=== PATIENT | male | born 1955 | race Caucasian/White ===

== ENCOUNTER → 2016-10-01 | Day surgery (SDC) | payer OTHER ==
[~2016-10-01] MED LIST: ASPIRIN325 MG PO; BACLOFEN 10MG T10 MG PO; COZAAR50 MG PO; LEXAPRO 10MG TA10 MG PO; MELATIN3 MG PO; MOBIC7.5 MG PO; NEURONTIN300 MG PO; PERCOCET 5/3251 TAB PO; VIBRAMYCIN100 MG PO; VICODIN 10/3251 EACH PO
== END | disposition home or self-care (01) ==
LOC: FAS 13:02
DX: H26.9 Unspecified cataract (principal); I10 Essential (primary) hypertension; F32.9 Major depressive disorder, single episode, unspecified; M19.90 Unspecified osteoarthritis, unspecified site; Z88.8 Allergy status to other drugs, medicaments and biological substances; K74.60 Unspecified cirrhosis of liver; Z79.899 Other long term (current) drug therapy; Z90.49 Acquired absence of other specified parts of digestive tract; Z98.890 Other specified postprocedural states

== ENCOUNTER 2021-02-19 14:18 | Emergency (ER) | payer MEDICARE ==
[2021-02-19 15:05] LABS: EOSINOPHIL 1.2 % (0-7); HGB 13.3 g/dl (13.2-18.0); LYMPHOCYTE 17.9 % (15-48); MCH 30.6 pg (25.0-31.0); MCHC 34.1 g/dL (32.0-36.0); MCV 89.7 fL (78.0-100.0); MONOCYTE 11.3 % (0-12); MPV 9.7 fL (6.0-9.5); NEUTROPHIL 68.4 % (41-80); NRBC 0; PLT 127 K/uL (150-400); RBC 4.35 M/uL (4.70-6.00); RDW 14.6 % (11.5-14.0); WBC 4.1 K/uL (4.0-10.5)
[2021-02-19 15:32] LABS: ALBUMIN 2.8 g/dL (3.4-5.0); BILIRUBIN - TOTAL 2.1 mg/dL (0.2-1.0); BUN/CREAT RATIO (CALC) 13.2 RATIO; CREATININE 1.06 mg/dL (0.67-1.17); GLOBULIN (CALCULATION) 3.4 g/dL; POTASSIUM 3.4 mmol/L (3.5-5.1); TOTAL PROTEIN 6.2 g/dL (6.4-8.2)
[2021-02-19 15:38] LABS: INR 1.2 (0.9-1.2); PROTHROMBIN TIME 14.6 SECONDS (11.8-13.4)
[2021-02-19 16:34] LABS: BILIRUBIN NEGATIVE (NEGATIVE); BLOOD NEGATIVE Ery/uL (NEGATIVE); CLARITY CLEAR (CLEAR); COLOR YELLOW (YELLOW); GLUCOSE (U) NORMAL (NORMAL); LEUKOCYTES NEGATIVE Leu/uL (NEGATIVE); NITRITE NEGATIVE (NEGATIVE); PROTEIN NEGATIVE (NEGATIVE); SPECIFIC GRAVITY 1.015 (1.001-1.030)
[2021-02-19] MEDS ORDERED: ALDACTONE25 MG PO (18:29)
[2021-02-19] MEDS ORDERED: LASIX40 MG PO (18:29)
[2021-02-19] MEDS ORDERED: BACTROBAN NASAL1 GM TOP (18:29)
[2021-02-19] MEDS ORDERED: K-DUR20 MEQ PO (18:29)
[2021-02-19] MEDS ORDERED: KEFLEX750 MG PO (18:29)
== END 2021-02-19 18:55 | disposition home or self-care (01) ==
LOC: FER 14:18
PROVIDERS: Emergency Medicine
DX: K74.60 Unspecified cirrhosis of liver (principal); L03.116 Cellulitis of left lower limb; L03.115 Cellulitis of right lower limb
CPT/HCPCS: 36415; 71045; 80053; 81003; 82140; 82150; 83690; 83880; 84145; 85025; 85610; 96374; 96375; J1940; P9046; Q9967

== ENCOUNTER 2021-02-24 16:51 | Emergency (ER) | payer MEDICARE, OTHER ==
[~2021-02-24 16:51] MED LIST changes: +ALDACTONE25 MG PO; +BACTROBAN NASAL1 GM TOP; +K-DUR20 MEQ PO; +KEFLEX750 MG PO; +LASIX40 MG PO
== END 2021-02-24 21:40 | disposition home or self-care (01) ==
LOC: EDBD 16:51 → FER 16:51
DX: R18.8 Other ascites (principal); Z98.890 Other specified postprocedural states; I10 Essential (primary) hypertension
CPT/HCPCS: 99282